=== PATIENT | female | born 1985 | race Caucasian/White ===

== ENCOUNTER 2017-03-17 17:26 | Emergency (ER) | payer OTHER ==
[~2017-03-17 17:26] MED LIST: BENZONATATE PO; CERTAGEN PO; CILOXAN5 ML OP; DOXYCYCLINE HY100 M1 PO; FLEXERIL PO; IBUPROFEN PO; PHENERGAN25 MG PO; SEROQUEL; TYLOX 5/500 CAP1 CAP PO; ULTRAM PO; VICODIN 5/1 TAB 5/50 PO; ZITHROMAX PO; ZITHROMAX1 G/PKT PO; [UNRECOGNIZED DRUG - OTHER] PO
[2017-03-17 20:02] LABS: URINE SOURCE CLEAN CATCH
[2017-03-17 20:11] LABS: URINE APPEARANCE CLEAR; URINE BILIRUBIN NEG (NEG); URINE BLOOD NEG (NEG); URINE COLOR YELLOW; URINE GLUCOSE NEG (NEG); URINE KETONE NEG (NEG); URINE LEUKOCYTE ESTERASE NEG (NEG); URINE NITRATE NEG (NEG); URINE PH 7.5 (5-8); URINE PROTEIN NEG (NEG); URINE SPECIFIC GRAVITY 1.005 (1.003-1.035); URINE UROBILINOGEN 0.2 MG/DL (NEG)
[2017-03-17 20:15] LABS: CULTURE INDICATED? NO
== END 2017-03-17 22:12 | disposition home or self-care (01) ==
LOC: CED 17:26
DX: O99.89 Other specified diseases and conditions complicating pregnancy, childbirth and the puerperium (principal); R10.2 Pelvic and perineal pain; O99.332 Smoking (tobacco) complicating pregnancy, second trimester; F17.210 Nicotine dependence, cigarettes, uncomplicated; Z3A.18 18 weeks gestation of pregnancy
CPT/HCPCS: 81003; 99284